=== PATIENT | male | born 1960 | race Caucasian/White ===

== ENCOUNTER 2025-01-18 06:53 | Day surgery (SDC) | payer MEDICARE, OTHER ==
[2025-01-16 14:49] VITALS: BMI 31.6
[~2025-01-18 06:53] MED LIST: LIDOCAINE 1% (10MG/ML) FOR IV START INTRADERMA PRN
[2025-01-18] MEDS: IV FLUID CONTINUATION 1,000 ML IV ONE (07:35)
[2025-01-18] MEDS: LACTATED RINGERS 1,000 ML IV SCH (07:35)
[2025-01-18 07:38] LABS: Glucose,Whole Blood 109 mg/dL (70-110)
[2025-01-18 07:39] VITALS: TEMP 97.8
[2025-01-18] MEDS ORDERED: PROPOFOL 10 MG/ML 20 ML VIAL IV ONE (08:18)
[2025-01-18] MEDS ORDERED: LIDOCAINE 1% INJ 10MG/ML (20 ML MDV) ONE (08:18)
--- NOTE | 2025-01-18 08:49 | P.PCN ---
Date of Procedure: 01/18/25 Procedure(s) Performed: Brief history: Patient is a pleasant 64-year-old white male scheduled for an elective upper endoscopy as well as colonoscopy as a part of evaluation of longstandinghistory of GERD/anemia and intermittent rectal bleeding and chronic constipation. He has been on aspirin Plavix for underlying coronary artery disease. Procedure performed: Esophagogastroduodenoscopy with biopsy Colonoscopy with snare polypectomy Preoperative diagnosis: Anemia/longstanding history of GERD Intermittent rectal bleed and chronic constipation Anesthesia: MAC Procedure: After informed consent was obtained from the patient was brought into the endoscopy unit and IV sedation was administered by anesthesia under continuous monitoring. Initially upper endoscopy was done. The Olympus GF 160 video endoscope was inserted inserted into the mouth and esophagus intubated without any difficulty and was gradually advanced into the stomach and duodenum and carefully examined. The bulb of the duodenum had a 5 mm superficial ulcer and second part of the duodenum appeared normal. The scope was then withdrawn into the stomach adequately insufflated with air and upon careful examination the antrum had multiple superficial erosions consistent with gastritis and biopsies were done from this area. Mucosa of the body, cardia and fundus appeared normal. The scope was then withdrawn into the esophagus. The GE junction was located at 40 cm to the incisors. It appeared regular with no erythema erosions or ulcerations. Rest of the esophagus appeared normal. Patient tolerated the procedure well. At this time the patient continued to remain sedation. Initial digital rectal examination was normal. Olympus CF 160 video colonoscope was then inserted into the rectum and gradually advanced to the cecum without any difficulty. Careful examination was performed as the scope was gradually being withdrawn. The prep was excellent. The cecum, ascending colon normal. The hepatic flexure there was a 5 mm polyp that was removed by cold snare polypectomy. Rest of the, transverse colon, descending colon, sigmoid colon and rectum appeared normal. Retroflexion was performed in the rectum and there was a 1 cm friable anal polyp identified on the dentate line which was removed by snare polypectomy.. Small internal hemorrhoids seen. Patient tolerated the procedure well. Impression: 1. Upper endoscopy revealed 5 mm duodenal ulcer and antral erosive gastritis 2. Colonoscopy revealed 5 mm hepatic flexure polyp and 1 cm friable anal polyp status post polypectomy and small internal hemorrhoids Recommendations: Findings of this examination were discussed with the patient as well as his family. He was advised to follow-up with the biopsy results. He was advised to be on a high-fiber diet and take fiber supplements on a regular basis and continue with MiraLAX 1 scoop every day. Resume aspirin and Plavix today. Follow-up in the office in 2 weeks. If the biopsy reveals adenoma, recommended repeat colonoscopy in 3 years.
[2025-01-18 08:59] VITALS: PULSE 90
[2025-01-18 09:10] VITALS: BP 124/80; RESP 16
== END 2025-01-18 09:50 | disposition home or self-care (01) ==
LOC: ORWHC2ENDO 06:53
PROVIDERS: ATTEND Internal Medicine Gastroenterology
DX: D12.3 Benign neoplasm of transverse colon (principal); D64.9 Anemia, unspecified; I25.10 Atherosclerotic heart disease of native coronary artery without angina pectoris; K26.9 Duodenal ulcer, unspecified as acute or chronic, without hemorrhage or perforation; K29.50 Unspecified chronic gastritis without bleeding; K62.82 Dysplasia of anus; K64.8 Other hemorrhoids; I10 Essential (primary) hypertension; E78.5 Hyperlipidemia, unspecified; G47.33 Obstructive sleep apnea (adult) (pediatric); N40.0 Benign prostatic hyperplasia without lower urinary tract symptoms; E11.9 Type 2 diabetes mellitus without complications; Z79.84 Long term (current) use of oral hypoglycemic drugs; Z99.89 Dependence on other enabling machines and devices; Z79.899 Other long term (current) drug therapy
CPT/HCPCS: 88305; 45385; 43239; J2003; J2704